=== PATIENT | male | born 2000 | race Caucasian/White ===

== ENCOUNTER 2020-06-04 20:48 | Emergency (ER) | payer OTHER, SELFPAY ==
[2020-06-04 20:49] VITALS: BP 153/93; PULSE 97; RESP 16; TEMP 35.2; O2SAT 97; BMI 32.8
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
== END 2020-06-04 21:15 | disposition home or self-care (01) ==
LOC: ED 21:14
PROVIDERS: Emergency Provider Emergency Medicine
DX: T23.102A Burn of first degree of left hand, unspecified site, initial encounter (principal); X15.3XXA Contact with hot saucepan or skillet, initial encounter
CPT/HCPCS: 99282

== ENCOUNTER 2022-06-18 11:28 | Outpatient (RCR) | payer BC, SELFPAY ==
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
== END 2022-06-18 19:00 | disposition home or self-care (01) ==
LOC: PT 11:28
DX: S32.012D Unstable burst fracture of first lumbar vertebra, subsequent encounter for fracture with routine healing (principal); S12.590D Other displaced fracture of sixth cervical vertebra, subsequent encounter for fracture with routine healing; T07.XXXD Unspecified multiple injuries, subsequent encounter

== ENCOUNTER 2022-10-22 10:30 | Outpatient (RCR) | payer BC, SELFPAY ==
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
== END 2022-10-22 19:00 | disposition home or self-care (01) ==
LOC: PT 10:30
DX: S32.012D Unstable burst fracture of first lumbar vertebra, subsequent encounter for fracture with routine healing (principal); S12.690D Other displaced fracture of seventh cervical vertebra, subsequent encounter for fracture with routine healing
CPT/HCPCS: 97110; 97162; 97530

== ENCOUNTER 2022-11-26 20:35 | Emergency (ER) | payer BC, SELFPAY ==
[2022-11-26 20:38] VITALS: BP 157/10; PULSE 91; RESP 18; TEMP 36.6; O2SAT 99; BMI 32.7
--- NOTE | 2022-11-26 21:47 | EX.ED.UPPERE ---
HPI History of Present Illness Chief Complaint: Laceration Narrative Narrative: 22 the medial aspect of his left index finger. This occurred last evening. He states he cut it with his pocket knife. He is right-hand dominant. Tetanus is up-to-date. He states he had intermittent bleeding at this 20 undresses it. Denies significant pain. Does not think he had a bone or tendon. No numbness or tingling PFSH PFSH Home Medications NK 06/04/20 [History Last Taken Unknown] Allergy/AdvReac Type Severity Reaction Status Date / Time amoxicillin [From Augmentin] Allergy Anaphylaxis Verified 11/26/22 20:38 clavulanic acid Allergy Anaphylaxis Verified 11/26/22 20:38 [From Augmentin] lactose Allergy Nausea/Vom/ Verified 11/26/22 20:38 Diarrhea Penicillins Allergy Hives Verified 11/26/22 20:38 Sulfa (Sulfonamide Allergy Anaphylaxis Verified 11/26/22 20:38 Antibiotics) venom-honey bee Allergy Anaphylaxis Verified 11/26/22 20:38 [bee venom (honey bee)] Social History Smoking Status: Never smoker ROS ROS ED Constitutional Constitutional ED: Denies chills, fever(s) or sweats Eyes Eyes: Denies blurry vision or change in vision ENT ENT ED: Denies ear pain, rhinorrhea or sore throat Cardiovascular Cardiovascular: Denies chest pain, palpitations or racing heartbeat Respiratory/Chest Respiratory/Chest: Denies cough, dyspnea or sputum Gastrointestinal Gastrointestinal: Denies abdominal pain, constipation, diarrhea or vomiting Genitourinary Genitourinary ED: Denies dysuria, hematuria or urinary frequency Musculoskeletal Musculoskeletal: Denies arthralgias, myalgias or neck pain Integumentary Reports other Details: Superficial laceration left index with ; Denies abscess, Abrasions or rash Neurologic Neurologic: Denies headache(s), paresthesias or weakness Psychiatric Psychiatric: Denies anxiety, depression, suicidal ideation or suicidal thoughts Endocrine Endocrinology: Denies polydipsia or polyuria EXAM Physical Exam Const Vital Signs: 11/26/22 20:38 Temperature 98 F Temperature Source Temporal Pulse Rate 91 Respiratory Rate 18 Blood Pressure 157/10 H Blood Pressure Mean 59 Pulse Ox 99 Positive well nourished General Appearance ED: NAD HEENT Reports moist mucous membranes normocephalic and atraumatic Eyes PERRL Resp normal respiratory effort Cardio regular rate and regular rhythm Extremity Extremity Narrative: Superficial 1 cm medial evulsion laceration of the index finger on the left hand. Mild bleeding. No bony tenderness. Neurovascular intact with brisk cap refill all 5 fingers Neuro oriented x3 Sensorium / Orientation: alert Motor Exam: strength 5/5 throughout Psych mental status grossly normal Skin Skin Narrative: As described above MDM MDM MDM Narrative Medical decision making narrative: Patient has a laceration which is old and superficial. It continues to bleed when he gets off the dressing. This will have to heal by secondary intention given the delayed presentation. His tetanus is up-to-date. I will place him in a compression dressing. He is given wound care instructions. Patient minimal this plan. Return precautions discussed. Impression: 1. Superficial left index finger laceration Discharge Plan Triage Chief Complaint: Laceration ED Provider: Hair Hernández Dx/Rx/DC Orders Instructions: ED Laceration, Old: Not Sutured Prescriptions: No Action NK Primary Care Provider: DANYELLE CARMONA Referrals: DANYELLE CARMONA [Other] Disposition Disposition: Home, Self Care
== END 2022-11-26 22:06 | disposition home or self-care (01) ==
PROVIDERS: Emergency Provider Student in an Organized Health Care Education/Training Program; Visit Provider Student in an Organized Health Care Education/Training Program
DX: S61.211A Laceration without foreign body of left index finger without damage to nail, initial encounter (principal); X58.XXXA Exposure to other specified factors, initial encounter
CPT/HCPCS: 99283